=== PATIENT | male | born 1955 | race Caucasian/White ===

== ENCOUNTER → 2017-06-04 | Day surgery (SDC) | payer OTHER ==
[~2017-06-04] VITALS: Ht 177.8 cm; Wt 99.0 kg
[~2017-06-04] MED LIST: ACETAMINOPHEN/HYDROcodone 325 MG/7.5 MG TAB PO PRN; AMLO5TAB2 PO; BUPIVACAINE HCL PF 0.5% 30 ML VIAL ONE; CEPH-460 PO; CHLORHEXIDINE GLUCONATE 2 % 1 PACK (2 CLOTHS) TOPICAL PRN; DEXAMETHASONE SOD PHOS 4 MG/ML VIAL IV ONE; DO NOT ADM ANY ANTICOAGULANT DRUGS PRN; FLUT50SP EACH NARE; INSULIN HUMAN REGULAR 1,000 UNITS/10 ML VIAL SQ PRN; LACTATED RINGER'S 1000 ML IV PRN; LIDOCAINE HCL 1% PF 5 ML SYRINGE OTHER ONE; LIDOCAINE HCL 2% 50 ML VIAL ONE; MEPERIDINE HCL 50 MG/ML VIAL IM PRN; METOPROLOL TARTRATE 25 MG TAB PO PRN; MIDAZOLAM HCL 2 MG/2 ML VIAL ONE; NORC5TAB PO; ONDANSETRON HCL 4 MG/2 ML VIAL IV ONE; PATA0.6S; POVIDONE IODINE 5% (ANTISEPSIS KIT) 4 APPLICATIONS EACH NARE PRN; PROPOFOL 200 MG/20 ML AMP IV ONE; SODIUM CHLORID 0.9% 500 ML IV PRN; ceFAZolin 1,000 MG/NS 100 ML IV SCH
[2017-06-04 11:58] LABS: AUTOMATED NEUTROPHIL # 3.4 TH/MM3 (1.8-7.7); BASOPHIL % 0.4 % (0.0-2.0); EOSINOPHIL # 0.1 TH/MM3 (0-0.4); EOSINOPHIL % 1.9 % (0.0-4.0); HEMATOCRIT 38.6 % (39.0-51.0); HEMOGLOBIN 13.5 GM/DL (13.0-17.0); LYMPH % 41.5 % (9.0-44.0); MEAN CELL VOLUME 80.2 FL (80.0-100.0); MEAN CORPUSCULAR HEMOGLOBIN 28.1 PG (27.0-34.0); MEAN PLATELET VOLUME 7.8 FL (7.0-11.0); MONO % 9.3 % (0.0-8.0); MONOCYTE # 0.7 TH/MM3 (0-0.9); NEUT % 46.9 % (16.0-70.0); PLATELET COUNT 252 TH/MM3 (150-450); RED BLOOD COUNT 4.81 MIL/MM3 (4.50-5.90); WHITE BLOOD COUNT 7.3 TH/MM3 (4.0-11.0)
[2017-06-04 15:09] VITALS: BP 140/82; PULSE 63; RESP 16; TEMP 96.9; O2SAT 99
--- NOTE | 2017-06-05 09:29 | EKG ---
Date Performed: 06/04/2017 Time Performed: 10:59:38 PTAGE: 62 years EKG: SINUS BRADYCARDIA LEFT VENTRICULAR HYPERTROPHY AND ST-T CHANGE ABNORMAL ECG Compared to PREVIOUS TRACING , the sinus rate has slowed. Criteria for LVH is now present. PREVIOUS T RACIN08/29/2015 09.27 DOCTOR: Alton Zaman Interpretating Date/Time 06/05/2017 09:28:46
--- NOTE | 2017-06-06 08:54 | MP ---
cc: OSVALDO PENNINGTON III, M.D. DATE OF OPERATION 06/04/2016 PREOPERATIVE DIAGNOSIS Left hand mass. PROCEDURE Left hand mass excisional biopsy. SURGEON Osvaldo Pennington III, MD PROCEDURE The patient was brought to the operating, placed supine on the operating table after the correct side and site of surgery were verified by members of each team in the room multiple times including the patient and myself and, after adequate preoperative markings and preoperative written consent were verified by everyone and after adequate preoperative time-out was performed to everyone's satisfaction, and after adequate IV sedation had been achieved, the left upper extremity was prepped and draped in traditional sterile surgical fashion. A 50/50 mixture of 2% plain lidocaine and 0.5% plain Marcaine was infiltrated proximally into the mass and the limb was exsanguinated. A highly placed, well-padded axillary tourniquet was inflated to 220 mmHg for a total of 11 minutes. The existing incision was reopened longitudinally overlying the mass. Blunt dissection quickly revealed a firm sac filled with white matter, closely resembling a sebaceous cyst. This was dissected free in its entirety and passed off the field as a specimen completely intact. The extensor tendon to the middle finger which was the only one that was near the operative field and this was examined and found be completely intact, no signs of any compromise. There was no penetration deep down to the metacarpal either. There were no other anatomic abnormalities identified. The existing operative wound cavity was then abraded and then thoroughly debrided with saline. The skin edges were reapproximated using running 4-0 nylon sutures. The hand and arm were thoroughly cleansed and dried, Betadine and Adaptic dressings applied on top of the wound, followed by a bulky soft dressing. The axillary tourniquet was released and the hand and all the fingers became immediately soft, pink and warm, had brisk capillary refill of less than 2 seconds. Circumferential dressing was applied gently in the usual fashion. The patient was awakened and transported to the Post-Anesthesia Care Unit awake and in stable condition. MD FLORI Jha III/RULA /1:56 PM /8:41 AM
== END | disposition home or self-care (01) ==
LOC: HSDC 10:36
PROVIDERS: ATTEND Orthopaedic Surgery Hand Surgery
DX: R22.32 Localized swelling, mass and lump, left upper limb (principal); L72.0 Epidermal cyst; I10 Essential (primary) hypertension
CPT/HCPCS: 01810; 26111; 85025; 88304; 93005; J0690; J2250; J3010; J7120; 88305; J1100; J2405